=== PATIENT | female | born 1965 | race Caucasian/White ===

== ENCOUNTER 2018-10-13 20:55 | Emergency (ER) | payer MEDICAID ==
[2018-10-13 21:06] VITALS: TEMP 98
--- NOTE | 2018-10-13 21:31 | XR ---
EXAMINATION TYPE: XR shoulder complete LT DATE OF EXAM: 10/13/2018 COMPARISON: NONE HISTORY: Left shoulder pain TECHNIQUE: 3 views FINDINGS: I see no fracture nor dislocation. Joint spaces are normal. There are no pathologic calcifi cations. IMPRESSION: Negative left shoulder exam.
[2018-10-13] MEDS ORDERED: KETOROLAC 30 MG/ML 1 ML VIAL IM STA (22:52)
[2018-10-13] MEDS ORDERED: ACET/COD 300 MG/30 MG STARTER PACK 6 TAB BTL PO STA (22:52)
--- NOTE | 2018-10-13 22:54 | ED ---
Upper Extremity HPI - General Source: patient Mode of arrival: ambulatory Limitations: no limitations <Bailey Louis Maykel - Last Filed: 10/14/18 00:55> <Yahaira Contreras - Last Filed: 10/18/18 02:12> - General Chief Complaint: Extremity Injury, Upper Stated Complaint: Shoulder/arm pain Time Seen by Provider: 10/13/18 21:57 - History of Present Illness Initial Comments: This is a 53-year-old female denies past medical history presenting today for chief complaint of left shoulder pain. 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 Patient states she got noticed a specific incident causing the left shoulder pain. She woke up with the pain 2 days ago. Patient states that the pain is reproducible to palpation and worsens with range of motion. She states the pain is mostly posterior shoulder. Patient states she has tried heating pad and ibuprofen however this has not alleviated pain. Patient denies chest pain, dyspnea or dyspnea on exertion. Patient denies any numbness, tingling or loss sensation, warmth or erythema of the shoulder, fever or chills or night sweats. Patient states that at times the pain can be sharp and shooting. Patient denies any neck injury or pain. Upon arrival patient is well-appearing, there are no signs of acute distress. Patient appears well but all signs within acceptable limits. Blood pressure elevated. Remainder vital signs within acceptable limits. (Bailey Louis) - Related Data Allergies Allergy/AdvReac Type Severity Reaction Status Date / Time No Known Allergies Allergy Verified 10/13/18 21:05 Review of Systems ROS Other: All systems not noted in ROS Statement are negative. Constitutional: Denies: fever, chills, night sweats ENT: Denies: ear pain, throat pain Respiratory: Denies: cough, dyspnea, wheezes, hemoptysis Cardiovascular: Denies: chest pain, palpitations, dyspnea on exertion Endocrine: Denies: fatigue Gastrointestinal: Denies: as per HPI, abdominal pain, nausea, vomiting, diarrhea , constipation, hematemesis, melena Genitourinary: Denies: as per HPI Musculoskeletal: Reports: arthralgia. Denies: back pain, joint swelling, myalgia Skin: Denies: rash, lesions, change in color Neurological: Denies: headache, weakness, numbness, paresthesias, confusion, abnormal gait <Bailey Louis L - Last Filed: 10/14/18 00:55> ROS Other: All systems not noted in ROS Statement are negative. <Yahaira Contreras P - Last Filed: 10/18/18 02:12> ROS Statement: Those systems with pertinent positive or pertinent negative responses have been documented in the HPI. Past Medical History Past Medical History: No Reported History History of Any Multi-Drug Resistant Organisms: None Reported Additional Past Surgical History / Comment(s): tumor removal left kidney Past Psychological History: No Psychological Hx Reported Smoking Status: Former smoker Past Alcohol Use History: Occasional Past Drug Use History: None Reported <Bailey Louis L - Last Filed: 10/14/18 00:55> General Exam Limitations: no limitations <Bailey Louis - Last Filed: 10/14/18 00:55> <Karina Contrerasica P - Last Filed: 10/18/18 02:12> - General Exam Comments Initial Comments: General: The patient is awake and alert, in no distress, and does not appear acutely ill. Eye: Pupils are equal, round and reactive to light, extra-ocular movements are intact. No nystagmus. There is normal conjunctiva bilaterally. No signs of icterus. Ears, nose, mouth and throat: There are moist mucous membranes and no oral lesions. Neck: The neck is supple, there is no tenderness or JVD. Cardiovascular: There is a regular rate and rhythm. No murmur, rub or gallop is appreciated. Respiratory: Lungs are clear to auscultation, respirations are non-labored, breath sounds are equal. No wheezes, stridor, rales, or rhonchi. Gastrointestinal: Soft, non-distended, non-tender abdomen without masses or organomegaly noted. There is no rebound or guarding present. No CVA tenderness. Bowel sounds are unremarkable. Musculoskeletal: Upon inspection of the left shoulder is equal in comparison the right. No erythema soft tissue swelling or warmth to palpation. No obvious step-offs or deformities. No winging of the scapula. Patient is tender to palpation of the posterior shoulder. Patient is able to fully range both actively and passively at the left shoulder however admits to pain with all range of motion including internal and external rotation. Strength appears preserved, 5 out of 5 with all ranges of motion of the left shoulder and left upper extremity, in comparison with the right. Patient is able to make the okay , fevers cross, finger opposition and extend the wrist, radial and ulnar and median nerve appear intact. Full sensation of the upper extremities equally bilaterally. Radial pulses equal bilaterally 2+. Capillary refill less than 2 seconds Neurological: A&O x 3. CN II-XII intact, There are no obvious motor or sensory deficits. Coordination appears grossly intact. Speech is normal. Skin: Skin is warm and dry and no rashes or lesions are noted. Psychiatric: Cooperative, appropriate mood & affect, normal judgment. (Bailey Louis) Vital Signs 10/13/18 10/13/18 21:01 23:07 Temperature 98.0 F Pulse Rate 72 65 Respiratory 20 18 Rate Blood Pressure 160/81 189/82 O2 Sat by Pulse 100 98 Oximetry Medical Decision Making <Bailey Louis - Last Filed: 10/14/18 00:55> <Yahaira Contreras - Last Filed: 10/18/18 02:12> - Medical Decision Making Patient neurovascular intact, compartments soft and compressible. Radial ulnar and median nerve appear intact. Shoulder pain is reproducible with range of motion and palpation. X-ray negative for acute fracture dislocation. Patient does often lift patients, and she states she states her left side. Injury may be due to sleeping position versus overuse injury. This does not appear to be referred pain. No signs of infectious process. At this time do feel patient is stable for discharge with sling for comfort, anti-inflammatories and rest. Patient was given starter pack for tylenol # 3 for pain management, all risks involved were discussed at length the patient who verbalized understanding. Case discussed with Dr. Contreras who is the impression and plan. Patient was discharged in stable condition appearing well, no signs of acute distress. Elevated blood pressure was noted I recommend patient follow-up with primary care provider for further evaluation. (Bailey Louis) I was available for consultation in the emergency department. The history and physical exam were done by the midlevel provider. I was consulted for this patient's care. I reviewed the case with the midlevel provider and based on their presentation of the patient, I agree with the assessment, medical decision making and plan of care as documented. (Yahaira Contreras) Disposition Is patient prescribed a controlled substance at d/c from ED?: No Time of Disposition: 22:54 <Bailey Louis - Last Filed: 10/14/18 00:55> <Yahaira Contreras - Last Filed: 10/18/18 02:12> Clinical Impression: Left shoulder pain, Decreased range of motion of left shoulder Disposition: HOME SELF-CARE Condition: Good Instructions: Shoulder Sprain (ED) Additional Instructions: Please use medication as discussed, no driving, consuming alcohol, working, or operating machinery while taking Tylenol #3. Please do not mix with xanax, ativan or other benzodiazepines as discussed or opioids. Please follow-up with family doctor in the next 2 days. Please follow-up with orthopedic surgery in the next 2-3 days. Please return to emergency room if the symptoms increase or worsen or for any other concerns. Referrals: Gilberto Reddy DO [Primary Care Provider] - 1-2 days Roque Corral PAC [PHYSICIAN DATA BASE ADMINISTRATOR] - 1-2 days
[2018-10-13 23:10] VITALS: BP 189/82; PULSE 65; RESP 18
== END 2018-10-13 23:24 | disposition home or self-care (01) ==
LOC: EC 20:55
DX: M25.512 Pain in left shoulder (principal); M25.612 Stiffness of left shoulder, not elsewhere classified; Z87.891 Personal history of nicotine dependence
CPT/HCPCS: 73030; 99283; 96372; J1885

== ENCOUNTER → 2018-11-19 | Outpatient (CLI) | payer MEDICAID ==
[2018-11-19 11:14] LABS: HCT 40.3 % (34.0-46.0); HGB 12.3 gm/dL (11.4-16.0); MCH 25.3 pg (25.0-35.0); MCHC 30.6 g/dL (31.0-37.0); MCV 82.7 fL (80.0-100.0); Mean Platelet Volume 7.1; Platelet Count 316 k/uL (150-450); RBC 4.87 m/uL (3.80-5.40); RDW 15.3 % (11.5-15.5); WBC 6.4 k/uL (3.8-10.6)
[2018-11-19 11:25] LABS: ALT 18 U/L (9-52); AST 14 U/L (14-36); Albumin 3.6 g/dL (3.5-5.0); Alkaline Phosphatase 49 U/L (38-126); Anion Gap 6 mmol/L; Blood Urea Nitrogen 11 mg/dL (7-17); Calcium 8.8 mg/dL (8.4-10.2); Carbon Dioxide 28 mmol/L (22-30); Chloride 108 mmol/L (98-107); Cholesterol 205 mg/dL (<200); Glucose 90 mg/dL (74-99); HDL Cholesterol 35 mg/dL (40-60); Potassium 4.6 mmol/L (3.5-5.1); Sodium 142 mmol/L (137-145); Total Bilirubin 0.3 mg/dL (0.2-1.3); Total Protein 6.2 g/dL (6.3-8.2); Triglycerides 429 mg/dL (<150)
[2018-11-19 11:42] LABS: Appearance,Urine Clear (Clear); Bilirubin,Urine Negative (Negative); Blood,Urine Large (Negative); Color,Urine Yellow; Glucose,Urine (UA) Negative (Negative); Ketones,Urine Negative (Negative); Leukocyte Esterase,Urine Negative (Negative); Mucus,Urine Few /hpf; Nitrite,Urine Negative (Negative); Protein,Urine Negative (Negative); RBC,Urine >182 /hpf (0-5); Specific Gravity,Urine 1.015 (1.001-1.035); Squamous Epithelial Cell,Urine <1 /hpf (0-4); Urobilinogen,Urine <2.0 mg/dL (<2.0)
--- NOTE | 2018-11-19 16:33 | XR ---
EXAMINATION TYPE: XR chest 2V DATE OF EXAM: 11/19/2018 COMPARISON: 02/23/2012 INDICATION: Renal carcinoma history TECHNIQUE: Frontal and lateral views of the chest are obtained. FINDINGS: The heart size is normal. The pulmonary vasculature is normal. The lungs are clear. Osseous structures appear intact. No expansile lesions are evident. IMPRESSION: 1. No acute pulmonary process. 2. No suspicious changes suggest metastatic disease.
[2018-11-19 20:10] LABS: Hemoglobin A1C 5.3 % (4.0-6.0)
== END | disposition home or self-care (01) ==
LOC: RADXRMAIN 10:22
PROVIDERS: ATTEND Family Medicine
DX: Z08 Encounter for follow-up examination after completed treatment for malignant neoplasm (principal); Z00.00 Encounter for general adult medical examination without abnormal findings; E66.9 Obesity, unspecified; Z85.528 Personal history of other malignant neoplasm of kidney
CPT/HCPCS: 71046; 80053; 80061; 81001; 82306; 83036; 84443; 85027

== ENCOUNTER → 2018-12-13 | Outpatient (CLI) | payer MEDICAID ==
[2018-12-13 08:36] LABS: Cholesterol 224 mg/dL (<200); HDL Cholesterol 48 mg/dL (40-60); LDL Cholesterol,Calculated 117 mg/dL (0-99); Triglycerides 295 mg/dL (<150)
--- NOTE | 2018-12-16 11:57 | MM ---
Reason for exam: screening (asymptomatic). Last mammogram was performed 3 years and 11 months ago. History: Patient has history of other cancer at age 43. Family history of breast cancer in maternal aunt at age 58. Physical Findings: A clinical breast exam by your physician is recommended on an annual basis and results should be correlated with mammographic findings. MG Screening Mammo w CAD Bilateral CC and MLO view(s) were taken. Prior study comparison: January 18, 2015, bilateral MG screening mammo w CAD. February 18, 2013, mammogram, performed at [facility]. There are scattered fibroglandular densities. No suspicious abnormality. No significant changes when compared with prior studies. ASSESSMENT: Negative, BI-RAD 1 RECOMMENDATION: Routine screening mammogram of both breasts in 1 year.
== END ==
LOC: RADMAMWWP 07:51
PROVIDERS: ATTEND Family Medicine
DX: Z12.31 Encounter for screening mammogram for malignant neoplasm of breast (principal); E78.5 Hyperlipidemia, unspecified
CPT/HCPCS: 36415; 77067; 80061

== ENCOUNTER → 2021-06-23 | Outpatient (CLI) | payer BC ==
--- NOTE | 2021-06-24 12:57 | MM ---
Reason for exam: screening (asymptomatic). Last mammogram was performed 2 years and 6 months ago. History: Patient has history of other cancer at age 43. Family history of breast cancer in maternal aunt at age 58. Physical Findings: A clinical breast exam by your physician is recommended on an annual basis and results should be correlated with mammographic findings. MG Screening Mammo w CAD Bilateral CC and MLO view(s) were taken. Prior study comparison: December 13, 2018, bilateral MG screening mammo w CAD. January 18, 2015, bilateral MG screening mammo w CAD. There are scattered fibroglandular densities. There is no discrete abnormality. No significant changes when compared with prior studies. ASSESSMENT: Negative, BI-RAD 1 RECOMMENDATION: Routine screening mammogram of both breasts in 1 year.
== END | disposition home or self-care (01) ==
LOC: RADMAMWWP 13:35
PROVIDERS: ATTEND Family Medicine
DX: Z12.31 Encounter for screening mammogram for malignant neoplasm of breast (principal); Z85.9 Personal history of malignant neoplasm, unspecified; Z80.3 Family history of malignant neoplasm of breast
CPT/HCPCS: 77067

== ENCOUNTER → 2022-06-27 | Outpatient (CLI) | payer BC ==
--- NOTE | 2022-07-03 15:14 | MM ---
Reason for Exam: Screening (asymptomatic). Last screening mammogram was performed 12 month(s) ago. Patient History: Menarche at age 18. First Full-Term at age 25. Other cancer, age 43. Maternal aunt had breast cancer, age 58. Last menstrual period: 04/28/2022 Risk Values: Karla 5 year model risk: 1.0%. NCI Lifetime model risk: 6.7%. Prior Study Comparison: 01/18/2015 Bilateral Screening Mammogram, [facility]. 12/13/2018 Bilateral Screening Mammogram, [facility]. 06/23/2021 Bilateral Screening Mammogram, [facility]. Tissue Density: There are scattered fibroglandular densities. Findings: Analyzed By CAD. Benign calcifications present bilaterally. Chronic nodularities on the left. No suspicious groups of microcalcifications, spiculated or lobular masses, architectural distortion or other secondary signs of malignancy are mammographically apparent. Overall Assessment: Benign, BI-RAD 2 Management: Screening Mammogram of both breasts in 1 year. A negative mammogram report should not preclude additional follow up of suspicious palpable abnormalities. Patient should continue monthly self breast exam. A clinical breast exam by your physician is recommended on an annual basis and results should be correlated with mammographic findings. Electronically signed and approved by: Gilberto Nation D.O. Radiologis
== END | disposition home or self-care (01) ==
LOC: RADMAMWWP 14:39
PROVIDERS: ATTEND Family Medicine
DX: Z12.31 Encounter for screening mammogram for malignant neoplasm of breast (principal); Z80.3 Family history of malignant neoplasm of breast; Z85.89 Personal history of malignant neoplasm of other organs and systems
CPT/HCPCS: 77067

== ENCOUNTER → 2023-11-02 | Outpatient (CLI) | payer BC ==
[2023-11-02 08:12] LABS: Basophils % (A) 1 %; Eosinophils # (A) 0.1 k/uL (0-0.7); Eosinophils % (A) 2 %; HCT 42.4 % (34.0-46.0); HGB 13.6 gm/dL (11.4-16.0); Hypochromasia Slight; Lymphocytes # (A) 1.4 k/uL (1.0-4.8); Lymphocytes % (A) 28 %; MCH 27.8 pg (25.0-35.0); MCHC 32.1 g/dL (31.0-37.0); MCV 86.6 fL (80.0-100.0); Mean Platelet Volume 7.9; Monocytes # (A) 0.3 k/uL (0-1.0); Monocytes % (A) 6 %; Neutrophils % (A) 61 %; Platelet Count 276 k/uL (150-450); RBC 4.89 m/uL (3.80-5.40); RDW 14.3 % (11.5-15.5)
--- NOTE | 2023-11-02 08:38 | CT ---
EXAMINATION TYPE: CT angio chest DATE OF EXAM: 11/02/2023 COMPARISON: NONE HISTORY: Chest pain, lung mass, history of renal CA CT DLP: 380.9 mGycm. Automated Exposure Control for Dose Reduction was Utilized. CONTRAST: CTA scan of the thorax is performed with IV Contrast, patient injected with 100 mL of Isovue 370, pul monary embolism protocol. MIP Images are created on CT scanner and reviewed. FINDINGS: LUNGS: The lungs are grossly clear, there is no concerning parenchymal mass or nodule identified. T here is no pleural effusion or pneumothorax seen. The tracheobronchial tree is patent. MEDIASTINUM: There is satisfactory enhancement of the pulmonary artery and its branches, there is no CT evidence for pulmonary embolism. Some enhancement of the thoracic aorta without aneurysm or dissec tion. Coronary artery calcification is present There are no greater than 1 cm hilar or mediastinal ly mph nodes. No cardiomegaly. Small to Tiny pericardial effusion is seen anterior-inferior aspect. OTHER: There is exaggerated thoracic kyphosis with bridging osteophytes anteriorly in the thoracic sp ine noted. IMPRESSION: 1. No CT evidence for acute pulmonary embolism. 2. No suspicious acute pulmonary process.
[2023-11-02 08:42] LABS: African American GFR (CKD) >90 (>60 ml/min/1.73 sqM); Anion Gap 3 mmol/L; Blood Urea Nitrogen 15 mg/dL (7-17); Calcium 8.6 mg/dL (8.4-10.2); Carbon Dioxide 29 mmol/L (22-30); Chloride 108 mmol/L (98-107); Glucose 86 mg/dL (74-99); Non-African American GFR(CKD) >90 (>60 ml/min/1.73 sqM); Potassium 4.5 mmol/L (3.5-5.1); Sodium 140 mmol/L (137-145)
== END | disposition home or self-care (01) ==
LOC: RADCTMAIN 07:41
PROVIDERS: ATTEND Family Medicine
DX: D49.1 Neoplasm of unspecified behavior of respiratory system (principal); R07.89 Other chest pain
CPT/HCPCS: 80048; 85025; 71275; 36415; Q9967

== ENCOUNTER → 2024-01-21 | Outpatient (CLI) | payer BC ==
[2024-01-21 16:24] LABS: ALT 13 U/L (8-44); AST 14 U/L (13-35); Chol/HDL Ratio 2.37 Ratio; LDL Cholesterol,Calculated 63.8 mg/dL (0.0-131.0)
== END | disposition home or self-care (01) ==
LOC: LABWHC1 09:54
PROVIDERS: ATTEND Internal Medicine Cardiovascular Disease
DX: E78.2 Mixed hyperlipidemia (principal)
CPT/HCPCS: 36415; 80061; 84450; 84460

== ENCOUNTER → 2024-04-02 | Outpatient (CLI) | payer BC ==
[2024-04-02 18:40] LABS: HCT 39.1 % (37.2-46.3); HGB 11.9 g/dL (12.0-15.0); MCH 26.9 pg (27.0-32.0); MCHC 30.4 g/dL (32.0-37.0); MCV 88.3 FL (80.0-97.0); Mean Platelet Volume 10.8 FL (9.5-12.2); NRBC Per 100 WBC 0 X 10*3/uL (0.00-0.01); Platelet Count 288 X 10*3/uL (140-440); RBC 4.43 X 10*6/uL (4.10-5.20); RDW 13.8 % (11.5-14.5); WBC 5.73 X 10*3/uL (4.50-10.00)
[2024-04-03 02:32] LABS: Blood Urea Nitrogen 24.3 mg/dL (9.0-27.0); Carbon Dioxide 24.6 mmol/L (21.6-31.8); Chloride 106 mmol/L (96-109); Potassium 4.5 mmol/L (3.5-5.5); Sodium 142 mmol/L (135-145)
== END | disposition home or self-care (01) ==
LOC: LABPAT 15:54
PROVIDERS: ATTEND Internal Medicine Cardiovascular Disease
DX: Z01.812 Encounter for preprocedural laboratory examination (principal); I25.10 Atherosclerotic heart disease of native coronary artery without angina pectoris
CPT/HCPCS: 80051; 82565; 84520; 85027

== ENCOUNTER 2024-04-09 06:12 | Day surgery (SDC) | payer BC ==
[2024-04-08 11:55] VITALS: BMI 36.3
[~2024-04-09 06:12] MED LIST: ALPRAZolam 0.25 MG TAB PO PRN; ALPRAZolam 0.5 MG TAB PO PRN; ASPIRIN 325 MG TAB PO STA; HEPARIN SODIUM,PORCINE (1 ML) 2,500 UNIT in SODIUM CHLORIDE 0.9% 250 ML IRRIGATION PRN; HEPARIN SODIUM,PORCINE 10,000 UNIT in SODIUM CHLORIDE 0.9% 1,000 ML IRRIGATION PRN; NITROGLYCERIN SL TABS 0.4 MG TAB SUBLINGUAL PRN
[2024-04-09] MEDS: SODIUM CHLORIDE 0.9% 1,000 ML in EMPTY BAG 1 BAG IV SCH (06:43)
[2024-04-09 06:44] VITALS: RESP 18; TEMP 98
[2024-04-09] MEDS ORDERED: LIDOCAINE 1% INJ 10MG/ML (20 ML MDV) ONE (07:11)
[2024-04-09] MEDS ORDERED: VERAPAMIL 2.5 MG/ML 2 ML AMP ONE (07:11)
[2024-04-09] MEDS ORDERED: fentaNYL (PF) 50 MCG/ML 2 ML AMP ONE (07:13)
[2024-04-09] MEDS ORDERED: HEPARIN SODIUM 1,000 UN/ML (10ML VL) ONE (07:14)
[2024-04-09] MEDS: MIDAZOLAM 2 MG/2 ML VIAL IVP ONE (07:33)
[2024-04-09] MEDS: fentaNYL (PF) 50 MCG/ML 2 ML AMP IVP ONE (07:34)
[2024-04-09] MEDS: LIDOCAINE 1% INJ 10MG/ML (20 ML MDV) SQ ONE (07:35)
[2024-04-09] MEDS: VERAPAMIL SYRINGE (5 MG/10 ML) INTRAARTER ONE (07:38)
[2024-04-09] MEDS: HEPARIN SODIUM 1,000 UN/ML (10ML VL) IVP ONE (07:42)
[2024-04-09] MEDS: IOPAMIDOL-370 100ML BTL INJ ONE (07:48)
[2024-04-09] MEDS ORDERED: RX INFO: IV CONTRAST WAS GIVEN 1 EACH MISC MISCELLANE PRN (08:16)
[2024-04-09] MEDS ORDERED: SODIUM CHLORIDE 0.9% 1,000 ML IV SCH (08:30)
--- NOTE | 2024-04-09 08:52 | CC ---
CARDIAC CATHETERIZATION REPORT INDICATION: Abnormal stress test. PROCEDURE NOTE: After obtaining informed consent, left heart catheterization and coronary angiogram were performed via the right radial artery using standard Tej catheters. The patient tolerated the procedure well without any obvious immediate complications. A TR band was used for hemostasis. The patient received moderate conscious sedation. Total sedation time was 13 minutes. Right radial artery access was obtained using Seldinger technique. A 6-Turkish sheath was placed. Catheters and wires were floated into the ascending aorta under fluoroscopic guidance. The patient received verapamil and heparin per protocol. FINDINGS: 1. Hemodynamics: Left ventricular end-diastolic pressure is 8 mm to 10 mm. There is no significant gradient across the aortic valve. 2. Left ventriculogram: Left ventriculogram is not performed. 3. Angiographic data: a.Left main coronary artery: Left main coronary artery is a normal-sized vessel and is free of stenosis. Divides into left anterior descending coronary artery and circumflex coronary artery. LAD and its branches, circumflex coronary artery and its branches are free of significant stenosis. Right coronary artery is a large dominant vessel and is free of significant disease. CONCLUSIONS: 1. Normal coronary arteries. 2. Normal left ventricular end-diastolic pressure. PLAN: I reviewed angiographic data with the patient and told her that her stress test is a false-positive stress test and her management is going to be in the form of aspirin, statin, and aggressive risk factor modification. MMODL / IJN: [id number] /
--- NOTE | 2024-04-09 09:01 | LTR ---
Dear Marco: I performed cardiac catheterization on Chela Pro. The detailed catheterization note is enclosed for your records. In brief, the cardiac catheterization did not reveal significant obstructive CAD and her stress test is a false-positive stress test and her management is going to be in the form of modification and medical therapy. Thank you for allowing me to participate in the care of this pleasant lady. WILBERT / ELI: [id number] /
[2024-04-09 10:57] VITALS: BP 117/68; PULSE 59
== END 2024-04-09 11:29 | disposition home or self-care (01) ==
LOC: CATHCVL 06:12
PROVIDERS: ATTEND Internal Medicine Cardiovascular Disease
DX: R94.39 Abnormal result of other cardiovascular function study (principal)
CPT/HCPCS: 93458; C1769; C1894; J2250; J2001; J3010; J1644; Q9967

== ENCOUNTER → 2024-06-27 | Outpatient (CLI) | payer BC ==
--- NOTE | 2024-06-30 08:26 | MM ---
Reason for Exam: Screening (asymptomatic). Last mammogram was performed 2 year(s) and 0 month(s) ago. Patient History: Menarche at age 18. First Full-Term at age 25. Postmenopausal. Other cancer, age 43. Maternal aunt had breast cancer, age 58. Risk Values: Karla 5 year model risk: 1.0%. NCI Lifetime model risk: 6.5%. Prior Study Comparison: 12/13/2018 Bilateral Screening Mammogram, [facility]. 06/23/2021 Bilateral Screening Mammogram, [facility]. 06/27/2022 Bilateral MG screening mammo w CAD, [facility]. Tissue Density: The breasts are almost entirely fatty. Findings: Analyzed By CAD. Right breast: There is no suspicious group of microcalcifications or new suspicious mass. Left breast: There is no suspicious group of microcalcifications or new suspicious mass. Overall Assessment: Negative, BI-RAD 1 Management: Screening Mammogram of both breasts in [address] [facility] will attempt to contact patient to return for supplemental views and ultrasound if indicated. Patient should continue monthly self-breast exams. A clinical breast exam by your physician is recommended on an annual basis. This exam should not preclude additional follow-up of suspicious palpable abnormalities. Note on Karla scores and lifetime risk: 1. A Karla score greater than 3% is considered moderate risk. If this is the case, consider specialist referral to assess eligibility for a risk reducing agent. 2. If overall lifetime risk for the development of breast cancer is 20% or higher, the patient may qualify for future screening with alternating mammogram and breast MRI. [facility], , 06/30/2024 8:23 AM. Electronically signed and approved by: Harley Escobedo DO
== END | disposition home or self-care (01) ==
LOC: RADMAMWWP 16:18
PROVIDERS: ATTEND Family Medicine
DX: Z12.31 Encounter for screening mammogram for malignant neoplasm of breast
CPT/HCPCS: 77067

== ENCOUNTER → 2024-07-11 | Outpatient (CLI) | payer BC ==
[2024-07-11 15:24] LABS: HCT 42.2 % (37.2-46.3); HGB 13.3 g/dL (12.0-15.0); MCH 27.2 pg (27.0-32.0); MCHC 31.5 g/dL (32.0-37.0); MCV 86.3 FL (80.0-97.0); Mean Platelet Volume 10.6 FL (9.5-12.2); NRBC Per 100 WBC 0 X 10*3/uL (0.00-0.01); Platelet Count 281 X 10*3/uL (140-440); RBC 4.89 X 10*6/uL (4.10-5.20); WBC 5.04 X 10*3/uL (4.50-10.00)
[2024-07-11 15:41] LABS: Appearance,Urine Clear (Clear); Bilirubin,Urine Negative (Negative); Blood,Urine Negative (Negative); Color,Urine Yellow (Yellow); Ketones,Urine Negative (Negative); Nitrite,Urine Negative (Negative); Specific Gravity,Urine 1.018 (1.001-1.030); Urobilinogen,Urine 0.2 E.U./DL
[2024-07-11 15:54] LABS: Bacteria,Urine Trace (None Seen)
[2024-07-11 16:39] LABS: ALT 14 U/L (8-44); AST 14 U/L (13-35); Albumin 4.2 g/dL (3.8-4.9); Albumin/Globulin Ratio 1.75 Ratio (1.60-3.17); Alkaline Phosphatase 87 U/L (41-126); BUN/Creat Ratio 25.67 Ratio (12.00-20.00); Blood Urea Nitrogen 15.4 mg/dL (9.0-27.0); Calcium 9.3 mg/dL (8.7-10.3); Carbon Dioxide 25.5 mmol/L (21.6-31.8); Chloride 105 mmol/L (96-109); Chol/HDL Ratio 3.63 Ratio; Globulin 2.4 g/dL (1.6-3.3); Glucose 91 mg/dL (70-110); LDL Cholesterol,Calculated 161.7 mg/dL (0.0-131.0); Potassium 4.7 mmol/L (3.5-5.5); Sodium 142 mmol/L (135-145); Total Bilirubin 0.4 mg/dL (0.3-1.2); Total Protein 6.6 g/dL (6.2-8.2)
== END | disposition home or self-care (01) ==
LOC: LABWHC1 09:51
PROVIDERS: ATTEND Internal Medicine Cardiovascular Disease
DX: Z00.00 Encounter for general adult medical examination without abnormal findings (principal); E78.2 Mixed hyperlipidemia
CPT/HCPCS: 36415; 80053; 80061; 81001; 82306; 83036; 84443; 85027